=== PATIENT | male | born 1990 | race Caucasian/White ===

== ENCOUNTER 2018-03-13 19:35 | Emergency (ER) | payer OTHER ==
--- NOTE | 2018-03-13 19:55 | PDOC ---
History of Present Illness - General History Source: Patient Exam Limitations: No Limitations - History of Present Illness Initial Comments: 03/13/18 20:41 The patient is a 27-year-old male, with a significant past medical history of asthma and rheumatoid arthritis, who presents to the ED with a burn to his chest. 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 He was carrying a pot of hot water on a tray at work today when the pot suddenly began to slide around on the tray. Some of the hot water fell onto his chest. He reports putting on burn cream that he found in a first aid kit and his pain has subsided a bit now. Tetanus is not up-to-date. The patient denies having any other symptoms or injuries. PCP: LAURA <Rebekah Dacosta - Last Filed: 03/13/18 20:41> <Rosi Turk - Last Filed: 03/14/18 03:55> - General Chief Complaint: Burn Stated Complaint: BURN Past History <Rebekah Dacosta - Last Filed: 03/13/18 20:41> <Rosi Turk - Last Filed: 03/14/18 03:55> - Past Medical History Allergies/Adverse Reactions: Allergies Allergy/AdvReac Type Severity Reaction Status Date / Time No Known Allergies Allergy Unverified 03/13/18 19:36 Home Medications: Ambulatory Orders Cephalexin [Keflex] 500 mg PO BID #14 capsule 03/13/18 Hydrocodone/Acetaminophen [Hydrocodon-Acetaminoph 7.5-325] 1 each PO PRN PRN Meloxicam 03/13/18 Silver Sulfadiazine [Silvadene] 15 gm TP TID #1000 cream..g. 03/13/18 Tizanidine HCl 2 mg PO TID PRN 03/13/18 Review of Systems - Review of Systems Able to Perform ROS?: Yes Comments:: 03/13/18 20:53 GENERAL/CONSTITUTIONAL: No fever or chills. No weakness. HEAD, EYES, EARS, NOSE AND THROAT: No change in vision. No ear pain or discharge. No sore throat. CARDIOVASCULAR: No chest pain or shortness of breath. RESPIRATORY: No cough, wheezing, or hemoptysis. GASTROINTESTINAL: No nausea, vomiting, diarrhea or constipation. GENITOURINARY: No dysuria, frequency, or change in urination. MUSCULOSKELETAL: No joint or muscle swelling or pain. No neck or back pain. SKIN: (+)Burn to sternum. NEUROLOGIC: No headache, vertigo, loss of consciousness, or change in strength/ sensation. ENDOCRINE: No increased thirst. No abnormal weight change. HEMATOLOGIC/LYMPHATIC: No anemia, easy bleeding, or history of blood clots. ALLERGIC/IMMUNOLOGIC: No hives or skin allergy. <Rebekah Dacosta - Last Filed: 03/13/18 20:41> *Physical Exam - Vital Signs Last Vital Signs Temp Pulse Resp BP Pulse Ox 98.7 F 80 16 124/83 98 03/13/18 19:36 03/13/18 19:36 03/13/18 19:36 03/13/18 19:36 03/13/18 19:36 - Physical Exam Comments: 03/13/18 20:55 GENERAL: Awake, alert, and fully oriented, in no acute distress HEAD: No signs of trauma EYES: PERRLA, EOMI, sclera anicteric, conjunctiva clear ENT: Auricles normal inspection, hearing grossly normal, nares patent, oropharynx clear without exudates. Moist mucosa NECK: Normal ROM, supple, no lymphadenopathy, JVD, or masses LUNGS: Breath sounds equal, clear to auscultation bilaterally. No wheezes, and no crackles HEART: Regular rate and rhythm, normal S1 and S2, no murmurs, rubs or gallops ABDOMEN: Soft, nontender, normoactive bowel sounds. No guarding, no rebound. No masses EXTREMITIES: Normal range of motion, no edema. No clubbing or cyanosis. No cords, erythema, or tenderness NEUROLOGICAL: Cranial nerves II through XII grossly intact. Normal speech, normal gait SKIN: (+)14cm x 4cm dagger-shaped 2nd degree burn to the sternal region of chest. Warm, Dry, normal turgor. <Rebekah Dacosta - Last Filed: 03/13/18 20:41> ED Treatment Course - Medications Given in the ED: ED Medications Discontinued Medications Generic Name Dose Route Start Last Admin Trade Name Freq PRN Reason Stop Dose Admin Cephalexin HCl 500 mg 03/13/18 20:05 03/13/18 20:19 Keflex - PO 03/13/18 20:06 500 mg ONCE ONE Administration Diphtheria/Tetanus/Acell Pertussis 0.5 ml 03/13/18 20:06 03/13/18 20:19 Boostrix - IM 03/13/18 20:07 0.5 ml .ONCE ONE Administration Ibuprofen 600 mg 03/13/18 20:05 03/13/18 20:19 Motrin - PO 03/13/18 20:06 600 mg ONCE ONE Administration Silver Sulfadiazine 1 applic 03/13/18 20:05 03/13/18 20:19 Silvadene - TP 03/13/18 20:06 1 applic ONCE ONE Administration <Rebekah Dacosta - Last Filed: 03/13/18 20:41> Medical Decision Making - Medical Decision Making 03/14/18 03:52 Pt works at a [employer], today he had scalding water pour off his tray onto his chest. Now with a 2%to 3% first and 2nd degree burn area in the center of his chest. Area is red and small blisters are beginning to develop. Pt has no other findings. He will receive tdap, keflex, silvadene and he can follow with PMD. HE will be given a note for work. Pt understands how to keep the area clean and dry and then covered with silvadene. Stable for discahrge home. Pain control with OTCs <Rosi Turk - Last Filed: 03/14/18 03:55> *DC/Admit/Observation/Transfer - Attestations Scribe Attestion: 03/13/18 20:57 Documentation prepared by Rebekah Dacosta, acting as nuclear medicine medical director for Rosi Turk MD. <Rebekah Dacosta - Last Filed: 03/13/18 20:41> - Discharge Dispostion Decision to Admit order: No <Rosi Turk - Last Filed: 03/14/18 03:55> Diagnosis at time of Disposition: Burn, Second degree burn, First degree burn - Discharge Dispostion Disposition: HOME Condition at time of disposition: Stable - Prescriptions Prescriptions: Cephalexin [Keflex] 500 mg PO BID #14 capsule Silver Sulfadiazine [Silvadene] 15 gm TP TID #1000 cream..g. - Referrals Referrals: ON STAFF,NOT [Primary Care Provider] - - Patient Instructions Printed Discharge Instructions: How to Take Care of a Burn, DI for [place], Tetanus, Diphtheria, Pertussis (Tdap) Vaccine - Post Discharge Activity Forms/Work/School Notes: Back to Work
[2018-03-13 20:05] VITALS: BP 124/83; PULSE 80; TEMP 98.7; BMI 40.7
[2018-03-13] MEDS ORDERED: SILVER SULFADIAZINE 1% TOP CREAM 50 GM JAR TP ONE ×2 (20:05→20:12)
[2018-03-13] MEDS ORDERED: IBUPROFEN 600 MG TABLET (FP) PO ONE ×2 (20:05→20:12)
[2018-03-13] MEDS ORDERED: CEPHALEXIN MONOHYDRATE 500 MG CAPSULE (UD) PO ONE (20:05)
[2018-03-13] MEDS ORDERED: DIPHTH,PERTUSS(ACELL),TET 0.5 ML DISP.SYRIN IM ONE (20:06)
[2018-03-13] MEDS ORDERED: CEPHALEXIN MONOHYDRATE 500 MG CAPSULE (UD) ONE (20:13)
== END 2018-03-13 20:34 | disposition home or self-care (01) ==
LOC: FER 19:35
CPT/HCPCS: 90715; 99281-25

== ENCOUNTER 2018-09-18 16:58 | Emergency (ER) | payer OTHER ==
[2018-09-18 17:21] VITALS: BP 123/83; PULSE 90; TEMP 98.1; BMI 44.1
--- NOTE | 2018-09-18 17:33 | PDOC ---
History of Present Illness - General Chief Complaint: Injury Stated Complaint: SLIPPED IN BATHROOM Time Seen by Provider: 09/18/18 17:03 History Source: Patient Exam Limitations: No Limitations - History of Present Illness Initial Comments: 09/18/18 17:34 28-year-old male asked medical history significant for sarcoidosis chronic pain and rheumatoid arthritis presents for evaluation after slipping and falling in the bathroom and hitting his head in the early hours. No LOC. He states that after the fall he felt nauseous and vomited multiple times. He's feeling some pressure at the back of his head. "throbby, cloudiness." He's on opiates daily for chronic back pain. Denies fever, change in vision, sob, chest pain, dysuria. 09/18/18 17:39 Past History - Past Medical History Allergies/Adverse Reactions: Allergies Allergy/AdvReac Type Severity Reaction Status Date / Time No Known Allergies Allergy Verified 09/18/18 16:59 Home Medications: Ambulatory Orders Tizanidine HCl 2 mg PO TID PRN 03/13/18 Methylprednisolone [Medrol Dose Benjy] 4 mg PO ASDIR #21 tablet 05/10/18 Cholecalciferol (Vitamin D3) [Vitamin D3 -] 400 unit PO DAILY 09/18/18 Hydrocodone/Acetaminophen [[place] 10-325 Tablet] 1 each PO PRN PRN 09/18/18 Asthma: (JUVENILE) COPD: No - Suicide/Smoking/Psychosocial Hx Smoking History: Current every day smoker Have you smoked in the past 12 months: Yes Number of Cigarettes Smoked Daily: 20 'Breaking Loose' booklet given: 03/13/18 Hx Alcohol Use: No Drug/Substance Use Hx: No Substance Use Type: None Review of Systems - Review of Systems Able to Perform ROS?: Yes Is the patient limited Turkish proficient: No Constitutional: No: Symptoms Reported HEENTM: Yes: See HPI Respiratory: No: Symptoms reported Cardiac (ROS): No: Symptoms Reported ABD/GI: No: Symptoms Reported : No: Symptoms Reported Musculoskeletal: Yes: See HPI Integumentary: No: Symptoms Reported All Other Systems: Reviewed and Negative *Physical Exam - Physical Exam General Appearance: Yes: Appropriately Dressed, Obese. No: Apparent Distress HEENT: positive: EOMI, TIMOTHY, Normal ENT Inspection, Other (No step off or hematoma of the cranium) Respiratory/Chest: positive: Lungs Clear, Normal Breath Sounds. negative: Chest Tender, Respiratory Distress Cardiovascular: positive: Regular Rhythm, Regular Rate, S1, S2 Gastrointestinal/Abdominal: positive: Normal Bowel Sounds, Flat, Soft. negative : Tender Musculoskeletal: positive: Other (Large ecchymosis over left flank, tender. ) Neurologic: positive: Fully Oriented, Alert, Normal Mood/Affect, Normal Response , Motor Strength 5/5 Medical Decision Making - Medical Decision Making 09/18/18 17:40 Concussion vs intracranial bleed, +/- internal bleeding. FAST negative. Ct head pendfing. If negative, will discharge with follow up. Negative t head. Can discharge. *DC/Admit/Observation/Transfer Diagnosis at time of Disposition: Closed head injury - Discharge Dispostion Disposition: HOME Condition at time of disposition: Improved Decision to Admit order: No - Referrals - Patient Instructions Printed Discharge Instructions: How to Prevent Falls, DI for Closed Head Injury Additional Instructions: Come back to the Emergency department for any new, worsening or concerning symptom. Follow up with your primary care provider within the next 3-4 days. - Post Discharge Activity
--- NOTE | 2018-09-18 17:48 | PDOC ---
Attending Attestation - Resident Resident Name: Deangelo Lamar - ED Attending Attestation I have performed the following: I have examined & evaluated the patient, The case was reviewed & discussed with the resident, I agree w/resident's findings & plan, Exceptions are as noted - HPI HPI: 09/18/18 17:41 28yo male presents for eval of mechanical slip and fall in the bathroom this AM. Hit the L flank on the side of the tub and hit his L head on the side of the tub. Pt with n/v since hitting his head. No loc. No neck pain. Pt with hx of RA and sarcoidosis. Intermittently on prednisone for pain. No back pain. no paresthesias. No weakness. No abd pain. No hematuria. - Physicial Exam PE: 09/18/18 17:46 Gen: aaox3, nad heart: +s1s2 reg lungs: cta b/l, lower rib L ttp, no deformities palpated abd: soft, obese, L flank ecchymosis neck/back: no midline ttp, no stepoffs or deformities ext: L hip ttp, pelvis stable, ambulatory with a steady gait neuro: cn ii-xii grossly intact, no focal deficits, muscle strength 5/5 UE and LE, ambulatory with a steady gait, sensation intact - Medical Decision Making 09/18/18 17:41 I, Dr. Ibis Carrillo, DO, attest that this document has been prepared under my direction and personally reviewed by me in its entirety. I further attest, that it accurately reflects all work, treatment, procedures and medical decision -making performed by me. 09/18/18 17:48 a/p: 28yo male with closed head injury and L flank injury after a mechanical fall -bedside fast negative -will send for head ct, rib series L and pelvis/hip L, will obtain ua to eval of hematuria -pt is nontoxic in appearance and neuro intact -will monitor and reassess 09/18/18 18:43 xray of hip and pelvis is negative for acute fx xray of ribs without acute rib fx 09/18/18 18:46 ua negative
[2018-09-18] MEDS ORDERED: ACETAMINOPHEN 500 MG TABLET (FP) PO ONE (17:50)
[2018-09-18] MEDS ORDERED: ONDANSETRON *ODT* 4 MG TABLET SL ONE (17:50)
[2018-09-18] MEDS ORDERED: ONDANSETRON *ODT* 4 MG TABLET ONE (17:59)
[2018-09-18] MEDS ORDERED: ACETAMINOPHEN 500 MG TABLET (FP) ONE (17:59)
[2018-09-18 18:43] LABS: PH,URINE 6.5 (4.5-8); URINE APPEARANCE Clear; URINE BILIRUBIN Negative (NEGATIVE); URINE COLOR Yellow; URINE GLUCOSE (UA) Negative (NEGATIVE); URINE KETONE Negative (NEGATIVE); URINE LEUK ESTERASE Negative (NEGATIVE); URINE NITRITE Negative (NEGATIVE); URINE PROTEIN Negative (NEGATIVE); URINE UROBILINOGEN 0.2 (0.2-1.0)
== END 2018-09-18 19:29 | disposition home or self-care (01) ==
LOC: FER 16:58
DX: S09.90XA Unspecified injury of head, initial encounter (principal); M06.9 Rheumatoid arthritis, unspecified; D86.9 Sarcoidosis, unspecified; F17.210 Nicotine dependence, cigarettes, uncomplicated; W01.0XXA Fall on same level from slipping, tripping and stumbling without subsequent striking against object, initial encounter; Y93.9 Activity, unspecified; Y92.002 Bathroom of unspecified non-institutional (private) residence as the place of occurrence of the external cause
CPT/HCPCS: 70450-TC; 71101-TC-LT-FY; 73523-TC-FY; 81003; 99282-25; Q0162

== ENCOUNTER 2019-04-13 20:27 | Emergency (ER) | payer OTHER ==
[2019-04-13 20:37] VITALS: BP 146/97; PULSE 67; TEMP 97.8; BMI 45.4
[2019-04-13] MEDS ORDERED: MECLIZINE HCL 25 MG TABLET (FP) PO ONE (20:54)
[2019-04-13] MEDS ORDERED: MECLIZINE HCL 25 MG TABLET (FP) ONE (21:00)
--- NOTE | 2019-04-13 21:16 | PDOC ---
Documentation entered by Dale Strange SCRIBE, acting as scribe for Goldie Del Castillo MD. Goldie Del Castillo MD: This documentation has been prepared by the Alexandr napoles Joel, SCRIBE, under my direction and personally reviewed by me in its entirety. I confirm that the documentation accurately reflects all work , treatment, procedures, and medical decision making performed by me. History of Present Illness - General Chief Complaint: Lightheaded Stated Complaint: DIZZY ON AND OFF SINCE THURSDAY MORNING Time Seen by Provider: 04/13/19 20:31 History Source: Patient Exam Limitations: No Limitations - History of Present Illness Initial Comments: 04/13/19 20:55 The patient is a 28 year old male with a significant PMH of anxiety and chronic neck stiffness who presents to the emergency department for evaluation of dizziness and nausea since yesterday. The patient states he has been experiencing intermittent room-spinning sensation with associated nausea which has continued through to tonight, aggravated by turning his head. The patient endorses recent nasal congestion but denies recent illness or sick contacts. The patient states this episode feels different from panic attacks he has had in the past. The patient denies chest pain, shortness of breath, and headache. Denies fever, chills, vomit, diarrhea, and constipation. Denies dysuria, frequency, urgency, and hematuria. PAST MEDICAL HISTORY: no significant history PAST SURGICAL HISTORY: no significant history FAMILY HISTORY: no pertinent history SOCIAL HISTORY: Pt lives with family and is employed. MEDICATIONS: reviewed ALLERGIES: NKA 04/13/19 21:16 Assessment plan: This is a 28-year-old male who comes in complaining of vertigo- type symptoms. Patient has no tinnitus associated with it. Patient has no nystagmus on my exam. Patient given meclizine and CBC and comp sent patient will have a head CT done. Plan is if everything is normal and patient feels better with the meclizine patient will be discharged. 04/13/19 21:[address] was negative for any acute pathology Reevaluation patient's symptoms improved with meclizine Patient's blood work was normal including CBC and comp. Patient discharged on meclizine. Follow up with his primary care doctor. Past History - Past Medical History Allergies/Adverse Reactions: Allergies Allergy/AdvReac Type Severity Reaction Status Date / Time No Known Allergies Allergy Verified 09/18/18 16:59 Home Medications: Ambulatory Orders Tizanidine HCl 2 mg PO TID PRN 03/13/18 Methylprednisolone [Medrol Dose Benjy] 4 mg PO ASDIR #21 tablet 05/10/18 Cholecalciferol (Vitamin D3) [Vitamin D3 -] 400 unit PO DAILY 09/18/18 Hydrocodone/Acetaminophen [[place] 10-325 Tablet] 1 each PO PRN PRN 09/18/18 Meclizine HCl [Antivert -] 25 mg PO QID #28 tablet 04/13/19 Asthma: (JUVENILE) COPD: No Other medical history: RHUMATOID ARTHRITIS/CARPAL TUNNEL - Suicide/Smoking/Psychosocial Hx Smoking History: Current every day smoker Have you smoked in the past 12 months: Yes Number of Cigarettes Smoked Daily: 10 Information on smoking cessation initiated: Yes 'Breaking Loose' booklet given: 03/13/18 Hx Alcohol Use: Yes (SOCAIL) Drug/Substance Use Hx: Yes (THC) Substance Use Type: None Review of Systems - Review of Systems Able to Perform ROS?: Yes Comments:: 04/13/19 20:54 General: No fevers or chills, no weakness, no weight loss HEENT: No change in vision. No sore throat,. No ear pain CardioVascular: No chest pain or shortness of breath Respiratory: No cough, or wheezing. Gastrointestinal: (+) Nausea. no vomiting, diarrhea or constipation, No rectal bleeding Genitourinary: No dysuria, hematuria, or frequency Musculoskeletal: No joint or muscle pain or swelling Neurologic: (+) Dizziness. No headache, vertigo or loss of consciousness Psychiatric: nor depression Skin: No rashes or easy bruising Endocrine: no increased thirst or abnormal weight change Allergic: no skin or latex allergy All other systems reviewed and normal *Physical Exam - Vital Signs Last Vital Signs Temp Pulse Resp BP Pulse Ox 97.8 F 67 14 146/97 97 04/13/19 20:31 04/13/19 20:31 04/13/19 20:31 04/13/19 20:31 04/13/19 20:31 - Physical Exam Comments: 04/13/19 21:05 GENERAL: The patient is awake, alert, and fully oriented, in no acute distress. HEAD: Normal with no signs of trauma. EYES: No nystagmus. Pupils equal, round and reactive to light, extraocular movements intact, sclera anicteric, conjunctiva clear. ENT: Well-healed laceration to upper lip. No swelling, no erythema. No tenderness ABDOMEN: Soft, nondistended, normal bowel sounds, nontender to palpation diffusely Extremities: Warm, dry, no cyanosis, clubbing, or edema EXTREMITIES: Normal range of motion, no edema. NEUROLOGICAL: Normal speech, normal gait. PSYCH: Normal mood, normal affect. SKIN: Warm, Dry, normal turgor, no rashes or lesions noted. ED Treatment Course - LABORATORY CBC & Chemistry Diagram: 04/13/19 21:10 04/13/19 21:10 - RADIOLOGY Radiology Studies Ordered: Category Date Time Status HEAD CT WITHOUT CONTRAST [CT] Stat CT Scan 04/13/19 20:53 Ordered - Medications Given in the ED: ED Medications Discontinued Medications Generic Name Dose Route Start Last Admin Trade Name Freq PRN Reason Stop Dose Admin Meclizine HCl 50 mg 04/13/19 20:54 04/13/19 21:02 Antivert - PO 04/13/19 20:55 50 mg ONCE ONE Administration *DC/Admit/Observation/Transfer Diagnosis at time of Disposition: Vertigo - Discharge Dispostion Disposition: HOME Condition at time of disposition: Stable Decision to Admit order: No - Prescriptions Prescriptions: Meclizine HCl [Antivert -] 25 mg PO QID #28 tablet - Referrals - Patient Instructions Additional Instructions: Your workup was negative including your CAT scan. Your symptoms most likely are secondary to vertigo which is usually caused by a virus and ataxic in her ear. Symptoms resolved on their own but meclizine helps you feel better until the symptoms resolve. Take meclizine 1 tablet as often as every 6 hours as needed for the vertigo or dizziness. Return to the emergency department immediately with ANY new, persistent or worsening symptoms. Continue any medications as previously prescribed by your physician. You should follow up with your primary doctor as soon as possible regarding today's emergency department visit. . Please make sure your doctor reviews the results of your emergency evaluation. Thank you for coming to the Emergency Department today for your care. It was a pleasure to see you today. Please note that your evaluation is INCOMPLETE until you follow-up with your doctor. - Post Discharge Activity
[2019-04-13 21:25] LABS: BASO % 2.3 % (0-2.0); EOS % 1.1 % (0-4.5); HEMATOCRIT 48.7 % (35.4-49); HEMOGLOBIN 16.7 GM/dl (11.7-16.9); LYMPH % 20.1 % (8-40); MCH 29.8 pg (25.7-33.7); MCHC 34.3 g/dl (32.0-35.9); MEAN CELL VOLUME 86.9 fl (80-96); MONO % 6.4 % (3.8-10.2); NEUT % 70.1 % (42.8-82.8); PLATELET COUNT 190 K/MM3 (134-434); RBC 5.61 M/mm3 (4.00-5.60); RDW 13.9 % (11.9-15.9); WHITE BLOOD COUNT 6.9 K/mm3 (4.0-10.8)
[2019-04-13 21:46] LABS: ALBUMIN 4.3 g/dl (3.4-5.0); BILIRUBIN,TOTAL 1.1 mg/dl (0.2-1); CALCIUM 9.1 mg/dl (8.5-10); CREATININE 0.9 mg/dl (0.55-1.3); POTASSIUM 4.2 mmol/L (3.5-5.1); TOT PROT 7.4 g/dl (6.4-8.2)
== END 2019-04-13 22:01 | disposition home or self-care (01) ==
LOC: FER 20:27
DX: R42 Dizziness and giddiness (principal); F17.210 Nicotine dependence, cigarettes, uncomplicated
CPT/HCPCS: 36415; 70450-TC; 80053; 85025; 99282-25

== ENCOUNTER 2019-10-05 14:39 | Emergency (ER) | payer OTHER ==
--- NOTE | 2019-10-05 15:03 | PDOC ---
History of Present Illness - General Chief Complaint: Nausea/Vomiting Stated Complaint: NAUSEA VOMITING DIARRHEA History Source: Patient Exam Limitations: No Limitations Past History - Past Medical History Allergies/Adverse Reactions: Allergies Allergy/AdvReac Type Severity Reaction Status Date / Time No Known Allergies Allergy Verified 10/05/19 14:43 Home Medications: Ambulatory Orders Tizanidine HCl 2 mg PO TID PRN 03/13/18 Hydrocodone/Acetaminophen [[place] 10-325 Tablet] 1 each PO TID PRN 09/18/18 Albuterol Sulfate Inhaler - [Ventolin Hfa Inhaler -] 2 puff IH DAILY 10/05/19 Ondansetron [Zofran *Odt*] 4 mg SL TID PRN #15 od.tablet 10/05/19 Asthma: (JUVENILE) COPD: No - Psycho Social/Smoking Cessation Hx Smoking History: Current every day smoker Have you smoked in the past 12 months: Yes Number of Cigarettes Smoked Daily: 10 'Breaking Loose' booklet given: 03/13/18 Hx Alcohol Use: Yes (SOCAIL) Drug/Substance Use Hx: Yes (THC) Substance Use Type: None ED Treatment Course - LABORATORY CBC & Chemistry Diagram: 10/05/19 15:30 10/05/19 15:30 Discharge - Discharge Information Problems reviewed: Yes Clinical Impression/Diagnosis: Nausea & vomiting, Diarrhea Condition: Stable Disposition: HOME - Additional Discharge Information Prescriptions: Ondansetron [Zofran *Odt*] 4 mg SL TID PRN #15 od.tablet PRN Reason: Nausea - Follow up/Referral Referrals: Regine Suazo [Primary Care Provider] - - Patient Discharge Instructions Patient Printed Discharge Instructions: DI for Vomiting -- Adult, DI for Diarrhea and Traveler's Diarrhea -- Adult Additional Instructions: You were seen in the emergency department for the evaluation of your vomiting and diarrhea. Your labs were within normal limits. Please follow up with your primary medical doctor within 1 week after discharge for follow up care and management. Please return to the emergency department if you have worsening symptoms or new concerning symptoms. Thank you. - Post Discharge Activity Work/Back to School Note: Back to Work
[2019-10-05 15:12] VITALS: TEMP 97.1; BMI 47.7
[2019-10-05] MEDS ORDERED: ONDANSETRON 4 MG/2 ML VIAL IVPUSH ONE ×2 (15:16→16:47)
[2019-10-05] MEDS ORDERED: ACETAMINOPHEN 1000 MG/100 ML VIAL (NON FORMULARY) IVPB ONE (15:16)
[2019-10-05] MEDS ORDERED: SODIUM CHLORIDE 1,000 ML IV STA (15:16)
[2019-10-05] MEDS ORDERED: ONDANSETRON 4 MG/2 ML VIAL ONE ×2 (15:34→16:50)
[2019-10-05] MEDS ORDERED: ACETAMINOPHEN INJECTION 100 ML IVPB ONE (15:34)
[2019-10-05 15:51] LABS: BASO % 0.9 % (0-2.0); EOS % 0.9 % (0-4.5); HEMATOCRIT 49.4 % (35.4-49); HEMOGLOBIN 16.7 GM/dl (11.7-16.9); LYMPH % 5.2 % (8-40); MCH 29.2 pg (25.7-33.7); MCHC 33.9 g/dl (32.0-35.9); MEAN CELL VOLUME 86.3 fl (80-96); MEAN PLT VOLUME 8.2 fl (7.5-11.1); MONO % 3.2 % (3.8-10.2); NEUT % 89.8 % (42.8-82.8); PLATELET COUNT 211 K/MM3 (134-434); RBC 5.73 M/mm3 (4.00-5.60); RDW 13.6 % (11.9-15.9); WHITE BLOOD COUNT 11.5 K/mm3 (4.0-10.8)
[2019-10-05 15:59] LABS: BILIRUBIN,TOTAL 0.9 mg/dl (0.2-1); CALCIUM 8.6 mg/dl (8.5-10); CREATININE 0.9 mg/dl (0.55-1.3); POTASSIUM 3.8 mmol/L (3.5-5.1); TOT PROT 6.6 g/dl (6.4-8.2)
--- NOTE | 2019-10-05 16:15 | PDOC ---
Attending Attestation - Resident Resident Name: HardyCarlos - ED Attending Attestation I have performed the following: I have examined & evaluated the patient, The case was reviewed & discussed with the resident, I agree w/resident's findings & plan, Exceptions are as noted - HPI HPI: 10/05/19 17:24 Nausea, vomiting, and diarrhea, mild symptoms, without significant abdominal pain. - Physicial Exam PE: 10/05/19 17:25 Physical exam with normal vital signs, mild epigastric tenderness without guarding or rebound, remainder of exam normal. No apparent signs of dehydration with adequate skin turgor and wet mucous membranes. - Medical Decision Making Assessment: CBC and chemistries without significant abnormalities, specifically , LFTs and lipase normal Much improved with fluids and Zofran. Abdominal tenderness to palpation has resolved. Nausea has resolved. No further vomiting or diarrhea. Plan: Continue oral hydration at home. Zofran for nausea. Return to ER if worse, otherwise follow-up primary physician. Adequately ambulatory upon discharge with family to follow-up as directed.
[2019-10-05 17:35] VITALS: BP 130/70; PULSE 98
== END 2019-10-05 17:29 | disposition home or self-care (01) ==
LOC: FER 14:39
PROC: 3E033NZ Introduction of Analgesics, Hypnotics, Sedatives into Peripheral Vein, Percutaneous Approach (ICD-10-PCS; principal; 2019-10-05)
PROC: 3E033GC Introduction of Other Therapeutic Substance into Peripheral Vein, Percutaneous Approach (ICD-10-PCS; 2019-10-05)
DX: R19.7 Diarrhea, unspecified (principal); R11.2 Nausea with vomiting, unspecified; F17.210 Nicotine dependence, cigarettes, uncomplicated
CPT/HCPCS: 36415; 80053; 83690; 85025; 99283-25; J0131; J7030

== ENCOUNTER 2022-01-09 03:05 | Emergency (ER) | payer OTHER ==
[2022-01-09 03:20] VITALS: BP 132/85; PULSE 80; TEMP 99.6; BMI 50.1
[2022-01-10 14:08] LABS: SARS-CoV-2 NAA Detected (Not Detected)
== END 2022-01-09 03:39 | disposition home or self-care (01) ==
LOC: FER 03:05
DX: J06.9 Acute upper respiratory infection, unspecified (principal)
CPT/HCPCS: 99283-25; C9803-CS; U0003; U0005